=== PATIENT | female | born 1990 | race Caucasian/White ===

== ENCOUNTER 2016-06-26 16:42 | Outpatient (CLI) | payer OTHER, MEDICAID ==
[~2016-06-26] VITALS: Ht 170.2 cm; Wt 83.6 kg
[~2016-06-26 16:42] MED LIST: BUPR1FIL7 SL; PREN1TAB60 PO
[2016-06-26 17:50] LABS: DAU SCREEN DISCLAIMER
[2016-06-26 18:01] LABS: ASPARTATE AMINO TRANSFERASE 12 U/L (15-37); BLOOD UREA NITROGEN 9 mg/dL (7-18)
[2016-06-28] MEDS ORDERED: LABE100T3 PO (23:30)
== END 2016-06-26 19:37 | disposition home or self-care (01) ==
LOC: LDOP 16:42
PROVIDERS: ATTEND Obstetrics & Gynecology
DX: O14.93 Unspecified pre-eclampsia, third trimester (principal); O99.333 Smoking (tobacco) complicating pregnancy, third trimester; F17.200 Nicotine dependence, unspecified, uncomplicated; Z3A.33 33 weeks gestation of pregnancy
CPT/HCPCS: 36415; 59025; 80053; 80307; 81001; 81050; 82570; 84156; 84550; 85025; 87086; 99211; G0463

== ENCOUNTER 2016-06-30 22:18 | Inpatient (IN) | payer OTHER, MEDICAID ==
[~2016-06-30] VITALS: Ht 170.2 cm; Wt 84.0 kg
[~2016-06-30 22:18] MED LIST changes: +LABE100T3 PO
[2016-06-30] MEDS ORDERED: hydrALAzine 20 MG/ML, 1ML ONE (23:44)
[2016-06-30] MEDS ORDERED: MAGNESIUM SULF. PMX 20GM/500ML 500 ML IV ONE (23:49)
[2016-06-30] MEDS: D5%-LACTATED RINGERS 1,000 ML IV SCH (23:58)
[2016-06-30] MEDS ORDERED: OXYTOCIN 30U/ 0.9% NaCL 500ML 500 ML IV ONE (23:58)
[2016-07-01] MEDS ORDERED: FENTANYL PF 100 MCG/2ML IVPush PRN
[2016-07-01] MEDS ORDERED: CALCIUM CARBONATE 500 MG TAB.CHEW PO PRN
[2016-07-01] MEDS ORDERED: ONDANSETRON 2MG/ML, 2ML IVPush PRN
[2016-07-01] MEDS ORDERED: FENTANYL PF 100 MCG/2ML IV PRN
[2016-07-01] MEDS ORDERED: MISOPROSTOL 25 MCG TABLET VG PRN
[2016-07-01] MEDS ORDERED: ACETAMINOPHEN 325 MG TABLET ONE ×4 (00:04→19:20)
[2016-07-01] MEDS: ACETAMINOPHEN 325 MG TABLET PO PRN ×4 (00:05→19:21)
[2016-07-01 00:33] LABS: HEMOGLOBIN 12.2 g/dL (11.7-16.4)
[2016-07-01 00:41] LABS: ASPARTATE AMINO TRANSFERASE 17 U/L (15-37); BLOOD UREA NITROGEN 10 mg/dL (7-18)
[2016-07-01] MEDS ORDERED: LABETALOL 5MG/ML, 20ML IVPush ONE (01:00)
[2016-07-01 01:34] LABS: DAU SCREEN DISCLAIMER
[2016-07-01] MEDS ORDERED: MISOPROSTOL 25 MCG TABLET ONE (01:42)
[2016-07-01] MEDS ORDERED: hydrALAzine 20 MG/ML, 1ML IV ONE ×2 (02:30)
[2016-07-01] MEDS ORDERED: NEWBORN KIT ONE (04:03)
[2016-07-01] MEDS ORDERED: FENTANYL/BUPIV./NS/PF 250 ML EPIDCONT ONE ×3 (04:33→22:30)
[2016-07-01] MEDS ORDERED: FENTANYL PF 100 MCG/2ML ONE (04:35)
[2016-07-01] MEDS ORDERED: LIDOCAINE/PF 1.5%-EPI 1:200K, 30ML ONE (04:35)
[2016-07-01] MEDS: VANCOMYCIN PMX 1GM/200ML 200 ML IVPB SCH ×2 (07:38→19:13)
[2016-07-01] MEDS: LACTATED RINGERS 1,000 ML IV SCH ×4 (07:58→23:58)
[2016-07-01] MEDS: D5%-LACTATED RINGERS 1,000 ML IV SCH ×3 (07:58→23:58)
[2016-07-01] MEDS ORDERED: MAGNESIUM SULF. PMX 20GM/500ML 500 ML IV ONE ×2 (09:40→19:58)
[2016-07-01] MEDS: MAGNESIUM SULF. PMX 20GM/500ML 500 ML IV PRN ×3 (09:48→20:06)
[2016-07-01] MEDS ORDERED: BUPRENORPHINE/NALOXONE 8-2MG SL SCH (13:00)
[2016-07-01] MEDS ORDERED: OXYTOCIN 30U/ 0.9% NaCL 500ML 500 ML IV PRN (14:22)
[2016-07-01] MEDS ORDERED: OXYTOCIN 30U/ 0.9% NaCL 500ML 500 ML ONE (14:39)
[2016-07-01 17:58] LABS: ASPARTATE AMINO TRANSFERASE 14 U/L (15-37); BLOOD UREA NITROGEN 9 mg/dL (7-18)
[2016-07-01 18:07] LABS: HEMOGLOBIN 12.4 g/dL (11.7-16.4)
[2016-07-01] MEDS: BUPRENORPHINE/NALOXONE 8-2MG SL SCH (21:10)
[2016-07-02] MEDS ORDERED: ACETAMINOPHEN 325 MG TABLET ONE ×3 (01:27→19:17)
[2016-07-02] MEDS: ACETAMINOPHEN 325 MG TABLET PO PRN ×3 (01:38→19:37)
[2016-07-02] MEDS: OXYTOCIN 30U/ 0.9% NaCL 500ML 500 ML IV SCH ×3 (01:39→21:39)
[2016-07-02] MEDS ORDERED: MISOPROSTOL 200 MCG TABLET PR PRN (02:00)
[2016-07-02] MEDS ORDERED: CARBOPROST TROMETHAMINE 250 MCG/ML, 1ML IM PRN (02:00)
[2016-07-02] MEDS ORDERED: DIPH,PERTUSS(ACELL),TET VAC/PF NC IM-VACC PRN (02:00)
[2016-07-02] MEDS ORDERED: BISACODYL 10 MG SUPP PR PRN (02:00)
[2016-07-02] MEDS ORDERED: RHOGAM FROM BLOOD BANK 1 NOTE EA IM/IV ONE (02:00)
[2016-07-02] MEDS ORDERED: CALCIUM CARBONATE 500 MG TAB.CHEW PO PRN (02:00)
[2016-07-02] MEDS ORDERED: METOCLOPRAMIDE 5 MG/ML, 2ML IV PRN (02:00)
[2016-07-02] MEDS ORDERED: ONDANSETRON 2MG/ML, 2ML IV PRN (02:00)
[2016-07-02] MEDS ORDERED: MEASLES,MUMPS&RUBELLA VACC/PF 0.5 ML SQ PRN (02:00)
[2016-07-02] MEDS ORDERED: ACETAMINOPHEN 325 MG TABLET PO PRN ×2 (02:00)
[2016-07-02] MEDS ORDERED: MAGNESIUM HYDROXIDE 8%, 30ML UDC PO PRN (02:00)
[2016-07-02] MEDS ORDERED: GLYCERIN ADULT SUPP PR PRN (02:00)
[2016-07-02] MEDS ORDERED: IBUPROFEN 600 MG TABLET PO PRN (02:00)
[2016-07-02] MEDS ORDERED: MISOPROSTOL 200 MCG TABLET ONE (02:34)
[2016-07-02] MEDS ORDERED: hydrALAzine 20 MG/ML, 1ML ONE ×2 (03:13→20:01)
[2016-07-02] MEDS ORDERED: hydrALAzine 20 MG/ML, 1ML IV ONE ×2 (03:30→22:00)
[2016-07-02] MEDS ORDERED: OXYTOCIN 30U/ 0.9% NaCL 500ML 500 ML ONE (03:45)
[2016-07-02] MEDS ORDERED: MAGNESIUM SULF. PMX 20GM/500ML 500 ML IV ONE (06:08)
[2016-07-02] MEDS: MAGNESIUM SULF. PMX 20GM/500ML 500 ML IV PRN ×2 (06:13→16:25)
[2016-07-02] MEDS: VANCOMYCIN PMX 1GM/200ML 200 ML IVPB SCH (07:00)
[2016-07-02] MEDS ORDERED: PRENATAL VIT/IRON/FA 1 EACH TABLET ONE (07:49)
[2016-07-02] MEDS: BUPRENORPHINE/NALOXONE 8-2MG SL SCH ×2 (07:55→15:59)
[2016-07-02] MEDS: PRENATAL VIT/IRON/FA 1 EACH TABLET PO SCH (07:55)
[2016-07-02] MEDS: D5%-LACTATED RINGERS 1,000 ML IV SCH (07:58)
[2016-07-02] MEDS: LACTATED RINGERS 1,000 ML IV SCH (07:58)
[2016-07-02 09:08] VITALS: BP 138/97
[2016-07-02 10:47] LABS: HEMOGLOBIN 11.5 g/dL (11.7-16.4)
[2016-07-02 11:55] VITALS: BP 147/98
[2016-07-02 16:00] VITALS: BP 130/86
[2016-07-02] MEDS: LACTATED RINGERS 1,000 ML IV PRN (16:23)
[2016-07-02] MEDS ORDERED: LABETALOL 5MG/ML, 20ML IVPush ONE (22:00)
[2016-07-03] MEDS: BUPRENORPHINE/NALOXONE 8-2MG SL SCH ×3 (00:01→16:22)
[2016-07-03] MEDS ORDERED: ACETAMINOPHEN 325 MG TABLET ONE ×4 (00:03→14:15)
[2016-07-03] MEDS: ACETAMINOPHEN 325 MG TABLET PO PRN ×5 (00:04→19:33)
[2016-07-03] MEDS ORDERED: MAGNESIUM SULF. PMX 20GM/500ML 500 ML IV ONE (02:10)
[2016-07-03] MEDS: MAGNESIUM SULF. PMX 20GM/500ML 500 ML IV PRN (02:14)
[2016-07-03] MEDS: LACTATED RINGERS 1,000 ML IV PRN (05:50)
[2016-07-03] MEDS: OXYTOCIN 30U/ 0.9% NaCL 500ML 500 ML IV SCH ×2 (07:39→17:39)
[2016-07-03] MEDS ORDERED: PRENATAL VIT/IRON/FA 1 EACH TABLET ONE (07:53)
[2016-07-03] MEDS: PRENATAL VIT/IRON/FA 1 EACH TABLET PO SCH (08:00)
[2016-07-03] MEDS ORDERED: DOCUSATE 100 MG CAPSULE ONE (13:14)
[2016-07-03] MEDS: DOCUSATE 100 MG CAPSULE PO PRN (13:16)
[2016-07-03 19:35] VITALS: BP 144/90
[2016-07-04 00:05] VITALS: BP 153/93
[2016-07-04] MEDS: BUPRENORPHINE/NALOXONE 8-2MG SL SCH ×2 (00:19→08:29)
[2016-07-04] MEDS: OXYTOCIN 30U/ 0.9% NaCL 500ML 500 ML IV SCH (03:39)
[2016-07-04 06:35] VITALS: BP 142/74
[2016-07-04] MEDS ORDERED: LABETALOL 100 MG TABLET PO SCH (08:30)
[2016-07-04] MEDS: PRENATAL VIT/IRON/FA 1 EACH TABLET PO SCH (08:30)
[2016-07-04] MEDS: DOCUSATE 100 MG CAPSULE PO PRN (08:30)
[2016-07-04] MEDS: ACETAMINOPHEN 325 MG TABLET PO PRN (08:30)
[2016-07-04 10:25] VITALS: BP 140/76
[2016-07-04] MEDS ORDERED: DOCU-30 PO (13:11)
[2016-07-04] MEDS ORDERED: IBUP-1222 PO (13:12)
== END 2016-07-04 13:58 | disposition home or self-care (01) | DRG 774 ==
LOC: LDIP 23:53 → 2NE 07-02 12:19 → 2NW 07-03 16:45
PROVIDERS: ADMIT Obstetrics & Gynecology; ATTEND Obstetrics & Gynecology
PROC: 0T9B70Z Drainage of Bladder with Drainage Device, Via Natural or Artificial Opening (ICD-10-PCS; 2016-07-01)
PROC: 10E0XZZ Delivery of Products of Conception, External Approach (ICD-10-PCS; principal; 2016-07-02)
PROC: 0UQGXZZ Repair Vagina, External Approach (ICD-10-PCS; 2016-07-02)
PROC: 00HU33Z Insertion of Infusion Device into Spinal Canal, Percutaneous Approach (ICD-10-PCS; 2016-07-02)
PROC: 3E0R3CZ (ICD-10-PCS; 2016-07-02)
DX: O15.1 Eclampsia complicating labor (principal); O45.93 Premature separation of placenta, unspecified, third trimester; O99.324 Drug use complicating childbirth; O71.4 Obstetric high vaginal laceration alone; Z37.0 Single live birth; F11.10 Opioid abuse, uncomplicated; Z3A.33 33 weeks gestation of pregnancy; F15.10 Other stimulant abuse, uncomplicated; O77.0 Labor and delivery complicated by meconium in amniotic fluid; O14.04 Mild to moderate pre-eclampsia, complicating childbirth; F17.200 Nicotine dependence, unspecified, uncomplicated; O99.824 Streptococcus B carrier state complicating childbirth; O99.334 Smoking (tobacco) complicating childbirth; Z88.0 Allergy status to penicillin; Z88.8 Allergy status to other drugs, medicaments and biological substances; Z23 Encounter for immunization
CPT/HCPCS: 36415; 80053; 80307; 81001; 83735; 84550; 85025; 86850; 86900; 87086; J3010; J3370; J3490; J0360; J2590; J3475; J7120

== ENCOUNTER → 2016-09-23 | Outpatient (CLI) | payer OTHER, MEDICAID ==
[~2016-09-23] VITALS: Ht 170.2 cm; Wt 71.0 kg
[~2016-09-23] MED LIST changes: +DOCU-30 PO; +FENTANYL PF 100 MCG/2ML ONE; +IBUP-1222 PO; +LACTATED RINGERS 1,000 ML IV SCH; +METH40TA3 PO; +MIDAZOLAM 1 MG/ML, 2ML ONE; +PLEASE ENTER HEIGHT AND WEIGHT MC SCH
[2016-09-23 10:10] VITALS: BP 109/76
[2016-09-23 10:52] LABS: DAU SCREEN DISCLAIMER
[2016-09-23 10:59] LABS: HCG UR OBC PASS
== END | disposition home or self-care (01) ==
LOC: OUT 09:21 → EDSTATUS 12:00
PROVIDERS: ATTEND Obstetrics & Gynecology
DX: Z30.2 Encounter for sterilization (principal)
CPT/HCPCS: 80307; 81025; J2250; J3010

== ENCOUNTER 2017-02-18 12:10 | Emergency (ER) | payer OTHER, MEDICAID ==
[~2017-02-18] VITALS: Ht 170.2 cm; Wt 75.0 kg
[~2017-02-18 12:10] MED LIST changes: +DOCU-131 PO; -DOCU-30 PO; -FENTANYL PF 100 MCG/2ML ONE; -LACTATED RINGERS 1,000 ML IV SCH; -MIDAZOLAM 1 MG/ML, 2ML ONE; -PLEASE ENTER HEIGHT AND WEIGHT MC SCH
[2017-02-18 13:16] LABS: HEMATOCRIT 37.4 % (34.6-47.8); HEMOGLOBIN 12.8 g/dL (11.7-16.4); WHITE BLOOD COUNT 7.5 x10^3/uL (3.4-10)
[2017-02-18 13:28] LABS: BLOOD UREA NITROGEN 8 mg/dL (7-18)
[2017-02-18 14:01] VITALS: BP 133/89
== END 2017-02-18 14:04 | disposition home or self-care (01) ==
LOC: ED 13:58
DX: O26.891 Other specified pregnancy related conditions, first trimester (principal); Z3A.09 9 weeks gestation of pregnancy; Z02.79 Encounter for issue of other medical certificate
CPT/HCPCS: 36415; 76801; 80048; 82040; 84702; 85025; 99285

== ENCOUNTER 2017-02-22 11:46 | Emergency (ER) | payer OTHER, MEDICAID ==
[~2017-02-22] VITALS: Ht 170.2 cm; Wt 72.3 kg
[2017-02-22 11:49] VITALS: BP 132/83
== END 2017-02-22 12:37 | disposition home or self-care (01) ==
LOC: ED 12:31
DX: L01.01 Non-bullous impetigo (principal)
CPT/HCPCS: 99283